=== PATIENT | male | born 1945 | race Caucasian/White ===

== ENCOUNTER 2017-01-16 07:55 | Day surgery (SDC) | payer OTHER ==
--- NOTE | 2017-01-15 12:38 | PCM.PREANE ---
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 Respiratory: Reports: no symptoms Cardiovascular: Reports: no symptoms GI: Reports: no symptoms - PHYSICAL ASSESSMENT Height: 1.75 m Weight: 151.953 kg ASA Class: 3 Mental Status: alert & oriented x3 Airway Class: Mallampati = 2 Dentition: Reports: normal dentition ROM/Head Extension: full Respiratory Status: lungs clear to auscultation bilaterally Cardiovascular Status: regular rate & rhythm, normal S1, S2, no murmur - ALLERGIES Allergies/Adverse Reactions: Allergies Allergy/AdvReac Type Severity Reaction Status Date / Time No Known Allergies Allergy Verified 01/14/17 09:01 - BLOOD Blood Available: No - ANESTHESIA PLAN Preop Beta Tayo: No Anesthesia Type Planned: MAC - ACKNOWLEDGEMENTS Pt an appropriate candidate for the planned anesthesia: Yes Alternatives and risks of anesthesia discussed w pt/guardian: Yes Pt/Guardian understands and agree with anesthesia plan: Yes PreAnesthesia Questionnaire Cardiovascular History: Reports: Hypertension Respiratory History: Reports: Sleep apnea (uses CPAP) Musculoskeletal History: Reports: Fracture, Osteoarthritis Other Musculoskeletal History: hx fx ankle Endocrine/Metabolic History: Reports: Diabetes, type II, Obesity/BMI 30+ (" super morbid obesity" with BMI of 54), Other (see below) (BMI=54) - Past Surgical History Head Surgeries/Procedures: Reports: None - SUBSTANCE USE Smoking Status *Q: Former Smoker Tobacco Use Within Last Twelve Months: No Recreational Drug Use History: No - HOME MEDS Home Medications: Home Meds Aspirin [[place] Aspirin] 81 mg PO DAILY 01/14/17 [History] Cholecalciferol (Vitamin D3) [Vitamin D3] 2 tab PO DAILY 01/14/17 [History] Glucosamine [Glucosamine Sulfate] 1 tab PO DAILY 01/14/17 [History] Lisinopril/Hydrochlorothiazide [Lisinopril-Hctz 10-12.5 mg Tab] 1 tab PO DAILY 01/14/17 [History] Meloxicam 7.5 mg PO DAILY PRN 01/14/17 [History] Multivitamin [Multivitamins] 1 tab PO DAILY 01/14/17 [History] atorvaSTATin Calcium [Atorvastatin Calcium] 10 mg PO BEDTIME 01/14/17 [History] metFORMIN HCl [Metformin HCl] 500 mg PO DAILY 01/14/17 [History]
[~2017-01-16 07:55] MED LIST: Lactated Ringers 1,000 ML IV SCH; Sodium Chloride 0.9% 10 ML Syringe FLUSH PRN; Sodium Chloride 0.9% 2.5 ML Syringe FLUSH PRN
[2017-01-16] MEDS ORDERED: Midazolam 1 MG/ML 2 ML SDV ONE (08:05)
[2017-01-16] MEDS ORDERED: fentaNYL 100 MCG/2 ML SDV ONE (08:05)
[2017-01-16] MEDS ORDERED: Propofol 200 MG/20 ML SDV ONE ×2 (08:05→09:05)
[2017-01-16] MEDS ORDERED: Lidocaine 2% 5 ML SDV ONE (08:05)
--- NOTE | 2017-01-16 09:42 | PCM.OPNOTE ---
- General Post-Op/Procedure Note Date of Surgery/Procedure: 01/16/17 Operative Procedure(s): Screening colonoscopy Findings: Diverticulosis Pre Op Diagnosis: Screening colonoscopy Post-Op Diagnosis: Diverticulosis Anesthesia Technique: MAC Primary Surgeon: Kina Reed Condition: Good
--- NOTE | 2017-01-16 10:10 | PCM.POSTAN ---
POST ANESTHESIA ASSESSMENT - MENTAL STATUS Mental Status: alert, oriented - RESPIRATORY Respiratory Status: respiratory rate WNL, airway patent, O2 saturation stable - CARDIOVASCULAR CV Status: pulse rate WNL, blood pressure stable - GASTROINTESTINAL GI Status: no symptoms - POST OP HYDRATION Hydration Status: adequate & stable
--- NOTE | 2017-01-16 10:10 | PCM48HPAN ---
Post Anesthesia Note - EVALUATION WITHIN 48HRS OF ANESTHETIC Vital Signs in Normal Range: Yes Patient Participated in Evaluation: Yes Respiratory Function Stable: Yes Airway Patent: Yes Cardiovascular Function Stable: Yes Hydration Status Stable: Yes Pain Control Satisfactory: Yes Nausea and Vomiting Control Satisfactory: Yes Mental Status Recovered: Yes
[2017-01-16 12:26] VITALS: BP 137/83
--- NOTE | 2017-01-16 13:40 | OR ---
SURGEON: IDA CEBALLOS MD DATE OF PROCEDURE: 01/16/2017 PREOPERATIVE DIAGNOSIS: Screening colonoscopy. POSTOPERATIVE DIAGNOSIS: Diverticulosis. PROCEDURE PERFORMED: Colonoscopy. INSTRUMENT USED: Olympus colonoscope. ANESTHESIA: MAC. EXTENT OF EXAM: To the cecum. PREPARATION: Fair to poor. LIMITATIONS: None. INDICATIONS FOR EXAMINATION: The patient is a 71-year-old male, who presents for screening colonoscopy. We discussed the procedure as well as expected perioperative course. We discussed the risks, including bleeding, infection, damage to surrounding structures, including perforation. The patient verbalized understanding and wished to proceed. PROCEDURE IN DETAIL: The patient was brought to the endoscopy suite and placed in the left lateral decubitus position. A time-out was completed verifying the patient's name, age, date of , allergies, and procedure to be performed. The patient had monitored anesthesia care induced and continuous oxygen was provided via face mask throughout the procedure. After adequate sedation was achieved, a digital rectal exam was performed. This examination was within normal limits. A well lubricated colonoscope was then inserted in the rectum and advanced under direct visualization to the level of cecum. The cecum was identified by both visual and anatomic landmarks. A photograph was taken of the cecal cap, but I was unable to retroflex the scope within the cecum due to looping of the scope in the sigmoid. The scope was fully withdrawn, while examining the color, texture, anatomy, and integrity of the mucosa from the cecum to the anal canal. The findings were consistent with diffuse diverticulosis within the sigmoid colon. The scope was then brought into the rectum and retroflexed to allow visualization of the anal canal opening. This appeared normal and photograph was taken. The scope was then removed from the patient. The cecum to anus time was 14 minutes. The patient was transferred to the recovery room in stable condition. ENDOSCOPIC DIAGNOSIS: Diverticulosis. RECOMMENDATION: Follow up in clinic in 2 weeks. RICARDO RANDLE /[id number]
== END 2017-01-16 10:20 | disposition home or self-care (01) ==
LOC: MW.SDS 07:55
PROVIDERS: ATTEND Surgery
PROC: 0DJD8ZZ Inspection of Lower Intestinal Tract, Via Natural or Artificial Opening Endoscopic (ICD-10-PCS; principal; 2017-01-16)
DX: Z12.11 Encounter for screening for malignant neoplasm of colon (principal); K57.30 Diverticulosis of large intestine without perforation or abscess without bleeding; I10 Essential (primary) hypertension; G47.33 Obstructive sleep apnea (adult) (pediatric); E11.9 Type 2 diabetes mellitus without complications; E78.5 Hyperlipidemia, unspecified; E66.01 Morbid (severe) obesity due to excess calories; M19.90 Unspecified osteoarthritis, unspecified site; Z87.891 Personal history of nicotine dependence; Z99.89 Dependence on other enabling machines and devices; Z79.82 Long term (current) use of aspirin; Z79.84 Long term (current) use of oral hypoglycemic drugs; Z79.899 Other long term (current) drug therapy; Z98.890 Other specified postprocedural states; Z68.43 Body mass index [BMI] 50.0-59.9, adult
CPT/HCPCS: 45378; J2250; J3010; J7120; 00810; J2704

== ENCOUNTER 2017-06-20 12:02 | Emergency (ER) | payer MEDICARE, OTHER ==
[2017-06-20] MEDS ORDERED: Sodium Chloride 0.9% 2.5 ML Syringe FLUSH PRN (12:29)
[2017-06-20] MEDS ORDERED: Sodium Chloride 0.9% 10 ML Syringe FLUSH PRN (12:29)
[2017-06-20] MEDS ORDERED: cloNIDine 0.1 MG Tab PO ONE (12:29)
[2017-06-20 13:10] LABS: CHLORIDE,CL 107 mmol/L (98-110); SODIUM,NA 142 mmol/L (136-146)
--- NOTE | 2017-06-20 13:18 | EDM.PDOC ---
ED HPI GENERAL MEDICAL PROBLEM - General Chief Complaint: Cardiovascular Problem Stated Complaint: HIGH BP Time Seen by Provider: 06/20/17 12:03 Source of Information: Reports: Patient History Limitations: Reports: No Limitations - History of Present Illness INITIAL COMMENTS - FREE TEXT/NARRATIVE: History of present illness: []Patient stated that he is not been feeling right the past couple days and started taking his blood pressure at home and noticed that has been high. He states he has not had any changes in his meds, activity or diet, however has gained weight recently. Review of systems: As per history of present illness and below otherwise all systems reviewed and negative. Past medical history: As per history of present illness and as reviewed below otherwise noncontributory. Surgical history: As per history of present illness and as reviewed below otherwise noncontributory. Social history: No reported history of drug or alcohol abuse. Family history: As per history of present illness and as reviewed below otherwise noncontributory. Physical exam: General: Well developed, well nourished in NAD HEENT: Atraumatic, normocephalic, pupils reactive, negative for conjunctival pallor or scleral icterus, mucous membranes moist, throat clear, neck supple, nontender, trachea midline. Lungs: Clear to auscultation, breath sounds equal bilaterally, chest nontender. Heart: S1S2, regular, negative for clicks, rubs, or JVD. Abdomen: Soft, nondistended, nontender. Negative for masses or hepatosplenomegaly. Negative for costovertebral tenderness. Pelvis: Stable nontender. Genitourinary: Deferred. Rectal: Deferred. Extremities: Atraumatic, negative for cords or calf pain. Neurovascular unremarkable. Neuro: Awake, alert, oriented. Cranial nerves II through XII unremarkable. Cerebellum unremarkable. Motor and sensory unremarkable throughout. Exam nonfocal. Diagnostics: []Labs done are normal Therapeutics: []Clonidine given Impression: [] Uncontrolled high blood pressure Plan: []Take meds as directed follow-up with PMD Definitive disposition and diagnosis as appropriate pending reevaluation and review of above. - Related Data Allergies Allergy/AdvReac Type Severity Reaction Status Date / Time No Known Allergies Allergy Verified 06/20/17 12:18 Home Meds: Home Meds Aspirin [[place] Aspirin] 81 mg PO DAILY 01/14/17 [History] Cholecalciferol (Vitamin D3) [Vitamin D3] 2 tab PO DAILY 01/14/17 [History] Glucosamine [Glucosamine Sulfate] 1 tab PO DAILY 01/14/17 [History] Lisinopril/Hydrochlorothiazide [Lisinopril-Hctz 10-12.5 mg Tab] 1 tab PO DAILY 01/14/17 [History] Meloxicam 7.5 mg PO DAILY PRN 01/14/17 [History] Multivitamin [Multivitamins] 1 tab PO DAILY 01/14/17 [History] atorvaSTATin Calcium [Atorvastatin Calcium] 10 mg PO BEDTIME 01/14/17 [History] metFORMIN HCl [Metformin HCl] 500 mg PO DAILY 01/14/17 [History] Past Medical History HEENT History: Reports: Impaired Vision Cardiovascular History: Reports: Hypertension Respiratory History: Reports: Sleep Apnea Gastrointestinal History: Reports: GERD Musculoskeletal History: Reports: Fracture, Osteoarthritis Other Musculoskeletal History: hx fx ankle Endocrine/Metabolic History: Reports: Diabetes, Type II, Obesity/BMI 30+, Other (See Below) - Past Surgical History Head Surgeries/Procedures: Reports: None Social & Family History - Family History Family Medical History: Noncontributory - Tobacco Use Smoking Status *Q: Never Smoker Month Tobacco Last Used: quit smoking 20 yrs ago - Recreational Drug Use Recreational Drug Use: No ED ROS GENERAL - Review of Systems Review Of Systems: See Below ED EXAM, GENERAL - Physical Exam Exam: See Below (See history of present illness) Course - Vital Signs Last Recorded V/S: Last Vital Signs Temp 36.4 C 06/20/17 12:18 Pulse 66 06/20/17 12:18 Resp 20 06/20/17 12:18 BP 155/88 H 06/20/17 12:39 Pulse Ox 95 06/20/17 12:18 - Orders/Labs/Meds Orders: Active Orders 24 hr Category Date Time Status Sodium Chloride 0.9% [Saline Flush] Med 06/20/17 12:29 Active 10 ml FLUSH ASDIRECTED PRN Sodium Chloride 0.9% [Saline Flush] Med 06/20/17 12:29 Active 2.5 ml FLUSH ASDIRECTED PRN Saline Lock Insert [OM.PC] Stat Oth 06/20/17 12:27 Ordered Medication Orders Sodium Chloride (Saline Flush) 10 ml FLUSH ASDIRECTED PRN PRN Reason: Keep Vein Open Sodium Chloride (Saline Flush) 2.5 ml FLUSH ASDIRECTED PRN PRN Reason: Keep Vein Open Labs: Laboratory Tests 06/20/17 06/20/17 06/20/17 Range/Units 12:38 12:38 12:38 WBC 6.52 (4.0-11.0) K/uL RBC 4.77 (4.50-5.90) M/uL Hgb 14.6 (13.0-17.0) g/dL Hct 45.4 (38.0-50.0) % MCV 95.2 (80.0-98.0) fL MCH 30.6 (27.0-32.0) pg MCHC 32.2 (31.0-37.0) g/dL RDW Std Deviation 47.1 (28.0-62.0) fl RDW Coeff of [place] 14 (11.0-15.0) % Plt Count 200 (150-400) K/uL MPV 9.60 (7.40-12.00) fL Neut % (Auto) 66.2 (48.0-80.0) % Lymph % (Auto) 22.4 (16.0-40.0) % [place] % (Auto) 9.7 (0.0-15.0) % Eos % (Auto) 1.2 (0.0-7.0) % Baso % (Auto) 0.5 (0.0-1.5) % Neut # (Auto) 4.3 (1.4-5.7) K/uL Lymph # (Auto) 1.5 (0.6-2.4) K/uL Sutter # (Auto) 0.6 (0.0-0.8) K/uL Eos # (Auto) 0.1 (0.0-0.7) K/uL Baso # (Auto) 0.0 (0.0-0.1) K/uL Nucleated RBC % 0.0 /100WBC Nucleated RBCs # 0 K/uL Sodium 142 (136-146) mmol/L Potassium 3.6 (3.5-5.1) mmol/L Chloride 107 (98-110) mmol/L Carbon Dioxide 28 (21-31) mmol/L BUN 20 (6.0-23.0) mg/dL Creatinine 0.8 (0.6-1.5) mg/dL Est Cr Clr Drug Dosing 84.69 mL/min Estimated GFR (MDRD) > 60.0 ml/min Glucose 124 H (60-110) mg/dL Calcium 9.1 (8.8-10.8) mg/dL Total Bilirubin 0.5 (0.1-1.5) mg/dL AST 23 (5-40) IU/L ALT 23 (8-54) IU/L Alkaline Phosphatase 58 (40-150) Troponin I < 0.10 (0.0-0.29) NG/ML Total Protein 6.8 (6.0-8.0) g/dL Albumin 3.6 (3.4-4.8) g/dL Globulin 3.2 (2.0-3.5) g/dL Albumin/Globulin Ratio 1.1 L (1.3-2.8) Meds: Medications Generic Name Dose Route Start Last Admin Trade Name Freq PRN Reason Stop Dose Admin Sodium Chloride 10 ml 06/20/17 12:29 Saline Flush FLUSH ASDIRECTED PRN Keep Vein Open Sodium Chloride 2.5 ml 06/20/17 12:29 Saline Flush FLUSH ASDIRECTED PRN Keep Vein Open Discontinued Medications Generic Name Dose Route Start Last Admin Trade Name Freq PRN Reason Stop Dose Admin Clonidine HCl 0.2 mg 06/20/17 12:29 06/20/17 12:39 Catapres PO 06/20/17 12:30 0.2 mg ONETIME ONE Administration Departure - Departure Time of Disposition: 13:48 Disposition: Home, Self-Care 01 Condition: Good Clinical Impression: Uncontrolled hypertension Forms: ED Department Discharge Additional Instructions: The following information is given to patients seen in the emergency department who are being discharged to home. This information is to outline your options for follow-up care. We provide all patients seen in our emergency department with a follow-up referral. The need for follow-up, as well as the timing and circumstances, are variable depending upon the specifics of your emergency department visit. If you don't have a primary care physician on staff, we will provide you with a referral. We always advise you to contact your personal physician following an emergency department visit to inform them of the circumstance of the visit and for follow-up with them and/or the need for any referrals to a consulting specialist. The emergency department will also refer you to a specialist when appropriate. This referral assures that you have the opportunity for follow-up care with a specialist. All of these measure are taken in an effort to provide you with optimal care, which includes your follow-up. Under all circumstances we always encourage you to contact your private physician who remains a resource for coordinating your care. When calling for follow-up care, please make the office aware that this follow-up is from your recent emergency room visit. If for any reason you are refused follow-up, please contact the [facility] Emergency Department at and asked to speak to the emergency department charge nurse. Continue regular medications follow-up with your primary care physician [facility] [address] [place] [id number] - My Orders Last 24 Hours: My Active Orders 06/20/17 12:27 Saline Lock Insert [OM.PC] Stat 06/20/17 12:29 Sodium Chloride 0.9% [Saline Flush] 10 ml FLUSH ASDIRECTED PRN Sodium Chloride 0.9% [Saline Flush] 2.5 ml FLUSH ASDIRECTED PRN - Assessment/Plan Last 24 Hours: My Active Orders 06/20/17 12:27 Saline Lock Insert [OM.PC] Stat 06/20/17 12:29 Sodium Chloride 0.9% [Saline Flush] 10 ml FLUSH ASDIRECTED PRN Sodium Chloride 0.9% [Saline Flush] 2.5 ml FLUSH ASDIRECTED PRN
[2017-06-20 14:53] VITALS: BP 141/84
== END 2017-06-20 13:58 | disposition home or self-care (01) ==
LOC: MW.ED 12:02
DX: I10 Essential (primary) hypertension (principal); K21.9 Gastro-esophageal reflux disease without esophagitis; M19.90 Unspecified osteoarthritis, unspecified site; E11.9 Type 2 diabetes mellitus without complications; E66.9 Obesity, unspecified; Z79.82 Long term (current) use of aspirin; Z79.84 Long term (current) use of oral hypoglycemic drugs; Z79.899 Other long term (current) drug therapy; Z68.43 Body mass index [BMI] 50.0-59.9, adult
CPT/HCPCS: 36415; 80053; 84484; 85025; 99283; A9270

== ENCOUNTER 2018-12-02 08:33 | Day surgery (SDC) | payer OTHER ==
[~2018-12-02 08:33] MED LIST changes: +Lidocaine 2% 5 ML SDV ONE; +Propofol 200 MG/20 ML SDV ONE; +fentaNYL 100 MCG/2 ML SDV ONE
--- NOTE | 2018-12-02 09:05 | PCM.PREANE ---
Preanesthetic Assessment - Anesthesia/Transfusion/Family Hx Anesthesia History: Prior Anesthesia Without Reaction Family History of Anesthesia Reaction: No Transfusion History: No Prior Transfusion(s) Intubation History: Unknown - Review of Systems General: No Symptoms Pulmonary: No Symptoms Cardiovascular: No Symptoms Gastrointestinal: Abdominal Pain, Other (change in bowel habits, rectal thickening on CT scan) Neurological: No Symptoms Other: Reports: None - Physical Assessment Height: 1.75 m Weight: 151.046 kg ASA Class: 3 Mental Status: Alert & Oriented x3 Airway Class: Mallampati = 2 Dentition: Reports: Partial (upper) Thyro-Mental Finger Breadths: 2 Mouth Opening Finger Breadths: 3 ROM/Head Extension: Full Lungs: Clear to Auscultation, Normal Respiratory Effort Cardiovascular: Regular Rate, Regular Rhythm - Allergies Allergies/Adverse Reactions: Allergies Allergy/AdvReac Type Severity Reaction Status Date / Time No Known Allergies Allergy Verified 11/29/18 10:53 - Blood Blood Available: No - Anesthesia Plan Pre-Op Medication Ordered: None - Acknowledgements Anesthesia Type Planned: MAC Pt an Appropriate Candidate for the Planned Anesthesia: Yes Alternatives and Risks of Anesthesia Discussed w Pt/Guardian: Yes Pt/Guardian Understands and Agrees with Anesthesia Plan: Yes PreAnesthesia Questionnaire HEENT History: Reports: Other (See Below) Other HEENT History: weaars glasses, has upper partial removable denture Cardiovascular History: Reports: High Cholesterol, Hypertension Respiratory History: Reports: Sleep Apnea Other Respiratory History: uses CPAP Gastrointestinal History: Reports: Diverticulosis, GERD Other Gastrointestinal History: GERD in the past- not now Genitourinary History: Reports: Prostate Disorder (prostate cancer) Musculoskeletal History: Reports: Fracture, Osteoarthritis (generalized) Other Musculoskeletal History: hx of fx leg Endocrine/Metabolic History: Reports: Diabetes, Type II, Obesity/BMI 30+ (BMI 49.2 - morbid obesity) Oncologic (Cancer) History: Reports: Prostate - Past Surgical History GI Surgical History: Reports: Colonoscopy (2017), Hernia, Inguinal - SUBSTANCE USE Smoking Status *Q: Former Smoker (quit ') Tobacco Use Within Last Twelve Months: No Recreational Drug Use History: No - HOME MEDS Home Medications: Home Meds Aspirin [[place] Aspirin EC] 81 mg PO DAILY 01/14/17 [History] Cholecalciferol (Vitamin D3) [Vitamin D3] 1,000 unit PO DAILY 01/14/17 [History] Multivitamin [Multivitamins] 1 tab PO DAILY 01/14/17 [History] atorvaSTATin Calcium [Atorvastatin Calcium] 10 mg PO BEDTIME 01/14/17 [History] metFORMIN HCl [Metformin HCl] 500 mg PO DAILY 01/14/17 [History] Gabapentin [Neurontin] 300 mg PO TID 11/29/18 [History] Hydrochlorothiazide [Microzide] 12.5 mg PO QAM 11/29/18 [History] Lisinopril 10 mg PO QAM 11/29/18 [History] - CURRENT (IN HOUSE) MEDS Current Meds: Current Medications Lactated Ringer's (Ringers, Lactated) 1,000 mls @ 125 mls/hr IV ASDIRECTED BELLO Sodium Chloride (Saline Flush) 10 ml FLUSH ASDIRECTED PRN PRN Reason: Keep Vein Open Sodium Chloride (Saline Flush) 2.5 ml FLUSH ASDIRECTED PRN PRN Reason: Keep Vein Open Sodium Chloride (Saline Flush) 10 ml FLUSH ASDIRECTED PRN PRN Reason: Keep Vein Open Sodium Chloride (Saline Flush) 2.5 ml FLUSH ASDIRECTED PRN PRN Reason: Keep Vein Open Discontinued Medications Fentanyl (Sublimaze) Confirm Administered Dose 100 mcg .ROUTE .STK-MED ONE Stop: 12/02/18 08:24 Lidocaine (Xylocaine-Mpf 2%) Confirm Administered Dose 5 ml .ROUTE .STK-MED ONE Stop: 12/02/18 08:24 Propofol (Diprivan 20 Ml) Confirm Administered Dose 400 mg .ROUTE .STK-MED ONE Stop: 12/02/18 08:24
[2018-12-02] MEDS ORDERED: Phenylephrine/Normal Saline 100 MCG/ML 10 ML Syringe ONE (10:38)
[2018-12-02] MEDS ORDERED: ePHEDrine 50 MG/ML SDV ONE (10:40)
--- NOTE | 2018-12-02 11:02 | PCM.OPNOTE ---
- General Post-Op/Procedure Note Date of Surgery/Procedure: 12/02/18 Operative Procedure(s): Diagnostic colonoscopy Findings: 2 sigmoid colon polyps, one rectal polyp, no evidence of inflammation Pre Op Diagnosis: Change in bowel habits Post-Op Diagnosis: Sigmoid and rectal colon polyps Anesthesia Technique: MAC Primary Surgeon: Kina Reed Condition: Good
[2018-12-02 11:25] VITALS: BP 136/81
--- NOTE | 2018-12-02 11:31 | PCM48HPAN ---
Post Anesthesia Note - EVALUATION WITHIN 48HRS OF ANESTHETIC Vital Signs in Normal Range: Yes Patient Participated in Evaluation: Yes Respiratory Function Stable: Yes Airway Patent: Yes Cardiovascular Function Stable: Yes Hydration Status Stable: Yes Pain Control Satisfactory: Yes Nausea and Vomiting Control Satisfactory: Yes Mental Status Recovered: Yes Resp Rate: 18 - COMMENTS/OBSERVATIONS Free Text/Narrative:: awake, alert, vitals stable. Getting dressed to go home. Good post op phase II recovery
--- NOTE | 2018-12-03 13:24 | OR ---
SURGEON: IDA CEBALLOS MD DATE OF PROCEDURE: 12/02/2018 PREOPERATIVE DIAGNOSES: 1. Change in bowel habits. 2. Rectal thickening on CT. POSTOPERATIVE DIAGNOSES: 1. Diverticulosis. 2. Sigmoid colon polyp x2. 3. Rectal polyp x1. PROCEDURE PERFORMED: Diagnostic colonoscopy. ANESTHESIA: MAC. INSTRUMENT USED: Olympus colonoscope. EXTENT OF EXAM: To the cecum. PREPARATION: Good. LIMITATIONS: None. INDICATION FOR EXAMINATION: The patient is a 73-year-old male who presented with an acute change in his bowel habits. Recent CT scan of the abdomen showed questionable rectal wall thickening. Given his ongoing bowel habit changes and the CT findings, the decision was made to proceed with diagnostic colonoscopy. I explained the procedure, expected perioperative course, and risks including bleeding, infection, or damage to surrounding structures including perforation. The patient verbalized understanding and wishes to proceed. PROCEDURE IN DETAIL: The patient was brought into the endoscopy suite and placed in a left lateral decubitus position. A time-out was completed verifying the patient's name, age, date of , allergies, and procedure to be performed. Monitored anesthesia care was induced and continuous oxygen was provided via nasal cannula throughout the procedure. After adequate sedation was achieved, a digital rectal exam was performed. This exam was within normal limits. A well lubricated colonoscope was inserted into the rectum and advanced under direct visualization to the level of cecum. Cecum was identified by both visual and anatomic landmarks. A photograph was taken of the cecal cap; however, I was unable to retroflex the scope within the cecum due to looping of the scope more proximally. The scope was then fully withdrawn while examining the color, texture, anatomy, and integrity of the mucosa from the cecum to the anal canal. The patient was found to have diverticulosis throughout the sigmoid colon. In the distal sigmoid colon, he had two sigmoid colon polyps. These were removed and sent to Pathology. There was one in the rectum as well, which was removed using a cold biopsy forceps and sent to pathology. The rectum was closely inspected and no other abnormalities were found. The scope was retroflexed within the rectum to visualize the anal canal. This appeared normal and a photograph was taken. The scope was then straightened out and fully withdrawn. The cecum to anus time was 12 minutes. The patient tolerated the procedure well and was taken to PACU in stable condition. ENDOSCOPIC DIAGNOSES: 1. Diverticulosis. 2. Sigmoid colon polyp x2. 3. Rectal polyp x1. RECOMMENDATIONS: Follow up in clinic in 2 weeks. RICARDO RANDLE /[id number]
== END 2018-12-02 11:35 | disposition home or self-care (01) ==
LOC: MW.SDS 08:33
PROVIDERS: ATTEND Surgery
DX: R19.4 Change in bowel habit (principal); R85.618 Other abnormal cytological findings on specimens from anus; K62.1 Rectal polyp; K63.5 Polyp of colon; K57.30 Diverticulosis of large intestine without perforation or abscess without bleeding; I10 Essential (primary) hypertension; E11.9 Type 2 diabetes mellitus without complications; E66.01 Morbid (severe) obesity due to excess calories; Z68.42 Body mass index [BMI] 45.0-49.9, adult; G47.33 Obstructive sleep apnea (adult) (pediatric); K21.9 Gastro-esophageal reflux disease without esophagitis; E78.00 Pure hypercholesterolemia, unspecified; Z99.89 Dependence on other enabling machines and devices; M15.9 Polyosteoarthritis, unspecified; Z87.891 Personal history of nicotine dependence; Z79.82 Long term (current) use of aspirin; Z79.84 Long term (current) use of oral hypoglycemic drugs; Z79.899 Other long term (current) drug therapy
CPT/HCPCS: 45380; 82962; J2001; J2370; J2704; J3010; J7120

== ENCOUNTER 2020-10-22 12:00 | Emergency (ER) | payer OTHER ==
--- NOTE | 2020-10-22 14:21 | US ---
INDICATION: Bilateral leg swelling. TECHNIQUE: Ultrasound venous duplex lower extremity bilateral. Compression venous exam was performed using ferrari-scale, color Doppler, and spectral Doppler imaging. COMPARISON: No prior. FINDINGS: Sonographic imaging demonstrates the common femoral, deep femoral, superficial femoral, popliteal, posterior tibial and greater saphenous veins to be fully compressible with normal color Doppler blood flow in both lower extremities. Left-sided popliteal cyst measuring 5 cm long dimension. IMPRESSION: No DVT within either lower extremity. Dictated by Kaveh Funez MD @ 10/22/2020 2:21:04 PM Dictated by: Kaveh Funez MD @ 10/22/2020 14:21:13 (Electronically Signed)
--- NOTE | 2020-10-22 14:27 | EDM.PDOC ---
ED HPI GENERAL MEDICAL PROBLEM - General Chief Complaint: Lower Extremity Injury/Pain Stated Complaint: [facility] Time Seen by Provider: 10/22/20 12:01 Source of Information: Reports: Patient History Limitations: Reports: No Limitations - History of Present Illness INITIAL COMMENTS - FREE TEXT/NARRATIVE: HISTORY AND PHYSICAL: History of present illness: Patient is a 75-year-old male who presents to the emergency room today from the [facility] for concern of possible blood clot to his left lower extremity. Patient states he has had issues with chronic lower extremity edema/swelling and wears WALE hose for this. Patient states he was having some discomfort of his left lal area the past 4-5 days and went and saw his primary care provider at the [facility] today. Patient states that he had had some basic lab work done but was told that they could not rule out a possible blood clots so told him to the emergency room for further evaluation for possible blood clot. Patient states that he has some discomfort of his left lal area but denies any trauma or injury and states that his legs are swollen per their baseline. Patient states that he has been wearing WALE hose and this does help with the swelling as well as the pain. Patient denies any redness or warmth of his lower extremities. Patient states he has a history of diabetes and COPD. Patient denies any history with blood clots. Patient states other than some slight lal discomfort, he is not having any other symptoms. Patient denies fever, chills, chest pain, shortness of breath, or cough. Denies headache, neck stiff ness, change in vision, syncope, or near syncope. Denies nausea, vomiting, abdominal pain, diarrhea, constipation, or dysuria. Has not noted any blood in urine or stool. Patient has been eating and drinking appropriately. Review of systems: As per history of present illness and below otherwise all systems reviewed and negative. Past medical history: As per history of present illness and as reviewed below otherwise noncontributory. Surgical history: As per history of present illness and as reviewed below otherwise noncontributory. Social history: See social history for further information Family history: As per history of present illness and as reviewed below otherwise noncontributory. Physical exam: General: Patient is alert, oriented, and in no acute distress. Patient sitting comfortably on exam table. Patient was able to ambulate into the ED. Vitals stable and reviewed by me. HEENT: Atraumatic, normocephalic, pupils equal and reactive bilaterally, negat catalino for conjunctival pallor or scleral icterus, mucous membranes moist, TMs normal bilaterally, throat clear, neck supple, nontender, trachea midline. No drooling or trismus noted. No meningeal signs. No hot potato voice noted. Lungs: Clear to auscultation, breath sounds equal bilaterally, chest nontender. Heart: S1S2, regular rate and rhythm without overt murmur Abdomen: Obese, soft, nondistended, nontender. Negative for masses or hepatosplenomegaly. Negative for costovertebral tenderness. Pelvis: Stable nontender. Genitourinary: Deferred. Rectal: Deferred. Skin: Intact, warm, dry. No lesions or rashes noted. Extremities: 1+ bilateral pitting edema to the knees. No obvious deformity, rash, injury noted to the LLE. No pain to palpation of the LLE. Patient has full ROM of bilateral lower extremities without pain or difficulty. Dorsalis pedis and posterior tibial pulses are grossly intact bilaterally with capillary refill less than 2 seconds. Atraumatic, negative for cords or calf pain. Neurovascular unremarkable. Neuro: Awake, alert, oriented. Cranial nerves II through XII unremarkable. Cerebellum unremarkable. Motor and sensory unremarkable throughout. Exam nonfocal. Notes: Signs and symptoms that would prompt return to the ED thoroughly discussed with patient. Discussed importance for follow-up with his primary care provider. Strict return precautions thoroughly discussed. Voices understanding and is agreeable to plan of care. Denies any further questions or concerns at this time. Diagnostics: Bilateral venous LE US Therapeutics: None Prescription: None Impression: Left leg pain, unspecified Bilateral lower extremity edema, chronic Plan: Definitive disposition and diagnosis as appropriate pending reevaluation and review of above. - Related Data Allergies Allergy/AdvReac Type Severity Reaction Status Date / Time No Known Allergies Allergy Verified 10/22/20 12:57 Home Meds: Home Meds Aspirin [Long Aspirin EC] 81 mg PO DAILY 01/14/17 [History] Cholecalciferol (Vitamin D3) [Vitamin D3] 1,000 unit PO DAILY 01/14/17 [History] Multivitamin [Multivitamins] 1 tab PO DAILY 01/14/17 [History] atorvaSTATin Calcium [Atorvastatin Calcium] 10 mg PO BEDTIME 01/14/17 [History] metFORMIN HCl [Metformin HCl] 500 mg PO DAILY 01/14/17 [History] Gabapentin [Neurontin] 300 mg PO TID 11/29/18 [History] Lisinopril 10 mg PO QAM 11/29/18 [History] hydroCHLOROthiazide [Microzide] 12.5 mg PO QAM 11/29/18 [History] Past Medical History HEENT History: Reports: Other (See Below) Other HEENT History: weaars glasses, has upper partial removable denture Cardiovascular History: Reports: High Cholesterol, Hypertension Respiratory History: Reports: Sleep Apnea Other Respiratory History: uses CPAP Gastrointestinal History: Reports: Diverticulosis, GERD Other Gastrointestinal History: GERD in the past- not now Genitourinary History: Reports: Prostate Disorder Musculoskeletal History: Reports: Fracture, Osteoarthritis Other Musculoskeletal History: hx of fx leg Endocrine/Metabolic History: Reports: Diabetes, Type II, Obesity/BMI 30+ Oncologic (Cancer) History: Reports: Prostate - Past Surgical History Head Surgeries/Procedures: Reports: None GI Surgical History: Reports: Colonoscopy, Hernia, Inguinal Social & Family History - Family History Family Medical History: No Pertinent Family History Review of Systems - Review of Systems Review Of Systems: Comprehensive ROS is negative, except as noted in HPI. ED EXAM, GENERAL - Physical Exam Exam: See Below (see dictation) Course - Vital Signs Last Recorded V/S: Last Vital Signs Temp 97.1 F 10/22/20 14:37 Pulse 72 10/22/20 14:37 Resp 16 10/22/20 14:37 BP 123/67 10/22/20 14:37 Pulse Ox 93 L 10/22/20 14:37 Departure - Departure Time of Disposition: 14:26 Disposition: Home, Self-Care 01 Clinical Impression: Left leg pain, Bilateral lower extremity edema - Discharge Information Instructions: How to Use Cold Therapy, [id number], Edema, [id number] Referrals: PCP,None [Primary Care Provider] - Forms: ED Department Discharge Additional Instructions: The following information is given to patients seen in the emergency department who are being discharged to home. This information is to outline your options for follow-up care. We provide all patients seen in our emergency department with a follow-up referral. The need for follow-up, as well as the timing and circumstances, are variable depending upon the specifics of your emergency department visit. If you don't have a primary care physician on staff, we will provide you with a referral. We always advise you to contact your personal physician following an emergency department visit to inform them of the circumstance of the visit and for follow-up with them and/or the need for any referrals to a consulting specialist. The emergency department will also refer you to a specialist when appropriate. This referral assures that you have the opportunity for follow-up care with a specialist. All of these measure are taken in an effort to provide you with optimal care, which includes your follow-up. Under all circumstances we always encourage you to contact your private physician who remains a resource for coordinating your care. When calling for follow-up care, please make the office aware that this follow-up is from your recent emergency room visit. If for any reason you are refused follow-up, please contact the [facility] Emergency Department at and asked to speak to the emergency department charge nurse. [facility] [address] [place] [id number] [id number] 1. Follow-up with your primary care provider as discussed. Return to the ED as needed and as discussed. 2. You can alternate ibuprofen and Tylenol as directed for pain and discomfort. Sepsis Event Note (ED) - Evaluation Sepsis Screening Result: No Definite Risk - Focused Exam Vital Signs: Vital Signs Temp Pulse Resp BP Pulse Ox 10/22/20 14:37 97.1 F 72 16 123/67 93 L 10/22/20 12:30 96.3 F L 73 18 177/85 H 95
[2020-10-22 14:38] VITALS: BP 123/67; PULSE 72
== END 2020-10-22 14:37 | disposition home or self-care (01) ==
LOC: MW.ED 12:00
DX: R60.0 Localized edema (principal); M79.662 Pain in left lower leg; I10 Essential (primary) hypertension; E11.9 Type 2 diabetes mellitus without complications; E66.9 Obesity, unspecified; E78.00 Pure hypercholesterolemia, unspecified; Z68.43 Body mass index [BMI] 50.0-59.9, adult; Z79.84 Long term (current) use of oral hypoglycemic drugs; Z79.82 Long term (current) use of aspirin; Z79.899 Other long term (current) drug therapy
CPT/HCPCS: 93970; 93970-26; 99283; 99284-25